=== PATIENT | male | born 1955 | race Caucasian/White ===

== ENCOUNTER → 2016-07-04 | Outpatient (CLI) | payer BC ==
[~2016-07-04] MED LIST: FISHOIL PO; MULTTAB58 PO
[2016-07-04 13:27] LABS: ESTIMATED AVERAGE GLUCOSE 105 mg/dl; HA1C FLAG Normal (Normal)
[2016-07-04 13:36] LABS: BLOOD UREA NITROGEN 23 mg/dl (7-18); GLUCOSE 94 mg/dl (70-99)
[2016-07-04 13:46] LABS: RHEUMATOID FACTOR < 10.0 U/mL (0-15)
[2016-07-07 15:50] LABS: ALBUMIN 4.1 G/DL (3.8-4.8); GAMMA GLOBULIN 1.1 G/DL (0.8-1.7); TOTAL PROTEIN 6.9 G/DL (6.2-8.3)
--- NOTE | 2016-07-10 10:04 | CODING QUERY NO DIAGNOSIS ---
TREATMENT RENDERED WITHOUT A DIAGNOSIS : 1955 To promote full compliance with coding requirements relating to patient care, physician participation is requested in all cases of remote medical coder uncertainty. Please assist us with providing a diagnosis/symptom for the test(s) below: A diagnosis/symptom was not documented on your Order. A valid diagnosis/symptom is required to bill all insurances. Please remember that we are unable to code a diagnosis of rule out, probable, possible, questionable, or suspected. Tests that require a diagnosis: DOS: 07/04/16 * BLOOD UREA NITROGEN DIAGNOSIS: * CREATININE DIAGNOSIS: * GLUCOSE DIAGNOSIS: * RHEUMATOID FACTOR DIAGNOSIS: * THYROID STIMULATING DIAGNOSIS: * ERYTHROCYTE SEDIMENT DIAGNOSIS: * HEMOGLOBIN A1C DIAGNOSIS: * VITAMIN B12 DIAGNOSIS: * RAPID PLASMA REAGIN DIAGNOSIS: Provider Signature: Date: Thank you Valentine Killian [facility] [employer] Once completed, please kindly fax back to [phone] For questions please call [phone]
== END | disposition home or self-care (01) ==
LOC: C.LABBC 10:23
PROVIDERS: ATTEND Podiatrist Foot & Ankle Surgery
DX: M72.2 Plantar fascial fibromatosis (principal)

== ENCOUNTER → 2017-06-08 | Outpatient (CLI) | payer BC ==
[2017-06-08 13:58] LABS: HEMOGLOBIN A1C 5.2 % (4.5-5.6)
[2017-06-08 14:00] LABS: ALBUMIN 3.9 gm/dl (3.4-5.0); ALT/SGPT 34 U/L (12-78); BLOOD UREA NITROGEN 18 mg/dl (7-18); CALCIUM 9.3 mg/dl (8.5-10.1); CARBON DIOXIDE 24 mmol/L (21-32); CHOLESTEROL 201 mg/dl (0-200); CREATININE 1.27 mg/dl (0.60-1.40); GLUCOSE 106 mg/dl (70-99); SODIUM 138 mmol/L (136-145)
[2017-06-08 14:05] LABS: ALKALINE PHOSPHATASE 77 U/L (45-117); AST/SGOT 20 U/L (15-37); LDL CHOLESTEROL CALCULATED 137 mg/dl; TOTAL PROTEIN 7.6 gm/dl (6.4-8.2)
== END | disposition home or self-care (01) ==
LOC: C.LABBC 10:14
PROVIDERS: ATTEND Nurse Practitioner Adult Health
DX: G62.9 Polyneuropathy, unspecified (principal); E55.9 Vitamin D deficiency, unspecified; Z12.5 Encounter for screening for malignant neoplasm of prostate; E78.5 Hyperlipidemia, unspecified